=== PATIENT | female | born 1985 | race African-American/Black ===

== ENCOUNTER 2020-08-30 06:42 | Outpatient (NON) | payer BC, SELFPAY ==
[2020-09-01 17:04] LABS: SARS-CoV-2 RNA PCR Positive
== END 2020-08-30 06:43 ==
PROVIDERS: Visit Provider Internal Medicine Endocrinology, Diabetes & Metabolism
DX: U07.1 COVID-19 (principal); R50.9 Fever, unspecified
CPT/HCPCS: 87635; C9803; U0003

== ENCOUNTER 2021-07-18 18:47 | Emergency (ER) | payer BC, SELFPAY ==
--- NOTE | ~2021-07-18 | CT_ITS ---
EXAMINATION: CT abdomen pelvis w con DATE: 07/18/2021 23:30 INDICATION: Abdominal pain. Nausea and vomiting. TECHNIQUE: Computed tomography (CT) of the abdomen and pelvis was performed with 100 mL Omnipaque 350 intravenous contrast. Automated exposure control and iterative reconstruction technique were employe d. The dose-length product was 1441.01 mGy-cm. COMPARISON: None. FINDINGS: The visualized portions of the lung bases demonstrate mild atelectasis. No pleural effusion . The heart size is normal. No pericardial effusion. There is a portacaval shunt in right hepatic lob e. There are gallstones in the gallbladder, which is normal in size. The common duct is dilated to 8 mm. There are cysts in the spleen measuring up to 15 mm. The pancreas, adrenal glands, and kidneys ar e normal. There are no dilated loops of bowel. The appendix is normal. There are no pathologically en larged lymph nodes. There is no free intraperitoneal fluid. The ovaries are unremarkable. There is mi ld thoracic spondylosis. IMPRESSION: 1. Cholelithiasis. No evidence of acute cholecystitis. 2. Mildly dilated common duct. Reviewed, dictated and finalized at location A.
[2021-07-18 18:59] VITALS: BP 146/96; PULSE 92; RESP 14; TEMP 36.1; O2SAT 99
[2021-07-18 19:28] LABS: Basophils Percent Auto 0.2 % (0.2-1.2); Hematocrit 40.1 % (37.0-47.0); Immature Granulocyte Absolute 0.03 K/mm3 (0.00-0.031); Immature Granulocyte Percent A 0.3 % (0-0.5); Lymphocytes Percent Auto 12.5 % (18.3-44.2); Mean Corpuscular HGB Conc 32.4 g/dl (32-36); Mean Corpuscular Hemoglobin 27.9 pg (26-34); Mean Corpuscular Volume 86.1 fl (80-100); Mean Platelet Volume 9.7 fl (7.4-10.4); Monocytes Absolute Auto 0.4 K/mm3 (0.1-0.6); Monocytes Percent Auto 3.8 % (2.6-8.5); Neutrophils Percent Auto 83.2 % (45.5-73.1); Platelet Count Result 302 k/mm3 (150-375); Red Blood Count 4.66 M/mm3 (4.2-5.4); Red Cell Distribution Width 13.8 % (11.5-14.5); White Blood Count 9.6 K/mm3 (4.5-10.0)
[2021-07-18 19:37] LABS: Add Urine Microscopic? YES; Appearance Urine Clear (Clear); Bacteria Urine Trace /hpf; Bilirubin Urine Negative (Negative); Blood Urine Negative (Negative); Color Urine Yellow (Yellow); Glucose Urine UA Negative (Negative); Ketones Urine Trace mg/dL (Negative); Leukocyte Esterase Ur Negative LEU/UL (Negative); Mucus Urine Rare /lpf; Nitrate Urine Negative (Negative); Protein Urine 1+ mg/dL (Negative); RBC Urine 0-2 /hpf (0-2); Specific Grav Ur 1.024 (1.001-1.035); Squamous Epithelial Cell Urine Many /hpf (Few); Urobilinogen Urine Negative mg/dL (<2.0); WBC Urine 0-3 /hpf
[2021-07-18 19:41] LABS: Alanine Aminotransferase 15 U/L (4-35); Albumin Level 4.8 g/dL (3.5-5.1); Alkaline Phosphatase 68 U/L (38-126); Anion Gap 10 mmol/L (8-16); Aspartate Amino Transferase 27 U/L (14-36); Bilirubin,Total 0.8 mg/dL (0.2-1.3); Blood Urea Nitrogen 11 mg/dL (7-17); Calcium 9.3 mg/dL (8.4-10.2); Carbon Dioxide 24 mmol/L (22-30); Chloride 105 mmol/L (98-107); Estimated CRCL calculation 91 ml/min; Estimated Glomerular Filt Rate > 60; Glucose 172 mg/dL (65-110); Lipase 88 U/L (23-300); Potassium 3.9 mmol/L (3.4-5.0); Sodium 139 mmol/L (137-145)
[2021-07-18 22:23] VITALS: BP 124/92; PULSE 99; RESP 16; TEMP 36.7; O2SAT 100
[2021-07-18] MEDS: SODIUM CHLORIDE 0.9% IV 1,000 ML 999 ML IV CONT (23:04)
[2021-07-18] MEDS: ONDANSETRON INJ 4 MG/2 ML VIAL IV PUSH (23:05)
[2021-07-18] MEDS: MORPHINE SULFATE (*CRX) 4 MG/ML INJ IV PUSH (23:06)
[2021-07-18 23:09] VITALS: BP 140/75; PULSE 95; RESP 20; O2SAT 99
[2021-07-18 23:10] VITALS: BP 140/75; PULSE 93; RESP 18; O2SAT 100
--- NOTE | 2021-07-18 23:16 | ED.GENADULT ---
HPI - General Adult General Chief complaint: Abdominal Pain Stated complaint: ABD PAIN N/V Time Seen by Provider: 07/18/21 22:38 History of Present Illness HPI narrative: Patient is a 6-year-old female presents emerged from with chief complaint of abdominal pain. Patient reports she been having nausea some vomiting and reports pain throughout her abdomen that radiates to her back. Patient states the pain is more of a cramping pain reports not improved by anything nor is it worsened modestly. Patient reports that she is had no diarrhea reports has had a normal bowel movement and the patient states her period was in the last month. Related Data Allergies Allergy/AdvReac Type Severity Reaction Status Date / Time No Known Allergies Allergy Verified 07/18/21 23:38 Review of Systems Review of Systems: A 10 system review of systems was completed on the patient and is negative except for what is stated in the HPI. Nursing and ancillary documentation was reviewed. Exam Narrative: GENERAL: Well-appearing, well-nourished, and in no acute distress. HEAD: Normocephalic, atraumatic. EYES: PERRLA and EOMI. ENT: Nares clear, no rhinorrhea or epistaxis. Mucous membranes moist. NECK: Supple. CHEST: Clear to auscultation. No respiratory distress. HEART: Regular rate and rhythm. No murmur heard. Normal peripheral pulses. ABDOMEN: Soft, tender to palpation diffusely, nondistended, normal active bowel sounds. EXTREMITIES: Normal range of motion. No edema. SKIN: Warm, dry, no rash. NEURO: No focal deficits. Alert and oriented x3. PSYCH: Normal mood and affect. Course Vital Signs Vital signs: Vital Signs Temperature 36.1 C L 07/18/21 18:59 Pulse Rate 92 07/18/21 18:59 Respiratory Rate 14 07/18/21 18:59 Blood Pressure 146/96 H 07/18/21 18:59 Pulse Oximetry 99 07/18/21 18:59 Temperature 36.7 C 07/18/21 22:23 Pulse Rate 112 H 07/19/21 00:02 Respiratory Rate 26 H 07/19/21 00:02 Blood Pressure 182/82 H 07/19/21 00:02 Pulse Oximetry 99 07/19/21 00:02 Medical Decision Making Vital Signs Vital Signs: Vital Signs Temperature 36.1 C L 07/18/21 18:59 Pulse Rate 92 07/18/21 18:59 Respiratory Rate 14 07/18/21 18:59 Blood Pressure 146/96 H 07/18/21 18:59 Pulse Oximetry 99 07/18/21 18:59 Temperature 36.7 C 07/18/21 22:23 Pulse Rate 112 H 07/19/21 00:02 Respiratory Rate 26 H 07/19/21 00:02 Blood Pressure 182/82 H 07/19/21 00:02 Pulse Oximetry 99 07/19/21 00:02 Lab Data Result diagrams: 07/18/21 19:10 07/18/21 19:11 Labs: Lab Results 07/18/21 07/18/21 07/18/21 Range/Units 19:10 19:10 19:11 WBC 9.6 (4.5-10.0) K/mm3 RBC 4.66 (4.2-5.4) M/mm3 Hgb 13.0 (12.0-15.0) g/dL Hct 40.1 (37.0-47.0) % MCV 86.1 (80-100) fl MCH 27.9 (26-34) pg MCHC 32.4 (32-36) g/dl RDW 13.8 (11.5-14.5) % Plt Count 302 (150-375) k/mm3 MPV 9.7 (7.4-10.4) fl Immature Gran % (Auto) 0.3 (0-0.5) % Neut % (Auto) 83.2 H (45.5-73.1) % Lymph % (Auto) 12.5 L (18.3-44.2) % Hubbard % (Auto) 3.8 (2.6-8.5) % Eos % (Auto) 0.0 (0-4.4) % Baso % (Auto) 0.2 (0.2-1.2) % Lymph # (Auto) 1.20 (0.9-3.2) K/mm3 Hubbard # (Auto) 0.4 (0.1-0.6) K/mm3 Eos # (Auto) 0.0 (0-0.3) K/mm3 Baso # (Auto) 0.0 (0.0-0.1) K/mm3 Abs Immat Gran (auto) 0.03 (0.00-0.031) K/mm3 Absolute Neuts (auto) 8.0 H (1.3-6.7) K/mm3 Absolute Nucleated RBC 0.0 (0.0-0.012) K/mm3 Nucleated RBC % 0.0 (0.0-0.2) % Sodium 139 (137-145) mmol/L Potassium 3.9 (3.4-5.0) mmol/L Chloride 105 (98-107) mmol/L Carbon Dioxide 24 (22-30) mmol/L Anion Gap 10 (8-16) mmol/L BUN 11 (7-17) mg/dL Creatinine 0.80 (0.7-1.0) mg/dL Estim Creat Clear Calc 91 ml/min Estimated GFR > 60 (59 - ) Glucose 172 H (65-110) mg/dL Calcium 9.3 (8.4-10.2) mg/dL Total Bilirubin 0.8 (0.2-1.3)
[2021-07-19 00:02] VITALS: BP 182/82; PULSE 112; RESP 26; O2SAT 99
[2021-07-19] MEDS: MORPHINE SULFATE (*CRX) 4 MG/ML INJ IV PUSH (00:58)
[2021-07-19 01:11] VITALS: BP 130/73; PULSE 99; RESP 18; O2SAT 100
== END 2021-07-19 01:13 | disposition home or self-care (01) ==
PROVIDERS: Emergency Medicine; Emergency Provider Emergency Medicine; PCP Internal Medicine Endocrinology, Diabetes & Metabolism
DX: R10.84 Generalized abdominal pain (principal)
CPT/HCPCS: 36415; 74177; 80053; 81001; 81025; 83690; 85025; 96361; 96374; 96375; 96376; 99284; J2270; J2405; J7030; Q9967

== ENCOUNTER 2021-08-09 08:27 | Outpatient (CLI) | payer BC, SELFPAY ==
--- NOTE | ~2021-08-09 | NM_ITS ---
EXAMINATION: NM hepatobiliary wo pharm DATE: 08/09/2021 14:17 INDICATION: Generalized abdominal pain COMPARISON: CT dated 07/18/2021 TECHNIQUE: 5.1 mCi Tc-99m mebrofenin (Choletec) was administered intravenously. Scintigraphic images of the abdomen were obtained for one hour. At the 1 hour time point, the patient drank 8 oz Ensure, and imaging was continued for 60 minutes. Additional 4 hour delayed images were obtained. FINDINGS: There is normal clearance of radiotracer from the blood pool. There is homogeneous tracer u ptake by the liver. Activity through the common bile duct to the bowel with duodenal activity first seen at 25 minutes. The gallbladder is not visualized on the 1 hour delayed images. On the 4 hour del ayed images the region of the gallbladder is obscured by intense activity within the small bowel whic h projects along the region of the gallbladder fossa. IMPRESSION: 1. Normal hepatic clearance of activity with no cholestasis. 2. Nonvisualization of the gallbladder during the first one hour of imaging which could be seen with acute cholecystitis. Delayed four-hour imaging is nondiagnostic due to the presence of a large amount of activity in the bowel at the right upper quadrant which obscures the region of the gallbladder fo ssa. If there is clinical concern for acute cholecystitis would recommend right upper quadrant ultras ound or repeat CT for further evaluation.. Reviewed, dictated and finalized at location A. IMPRESSION: 1. Normal hepatic clearance of activity with no cholestasis. 2. Nonvisualization of the gallbladder during the first one hour of imaging whi ch could be seen with acute cholecystitis. Delayed four-hour imaging is nondiag nostic due to the presence of a large amount of activity in the bowel at the ri t upper quadrant which obscures the region of the gallbladder fossa. If there is clinical concern for acute cholecystitis would recommend right upper quadra nt ultrasound or repeat CT for further evaluation..
== END 2021-08-09 08:28 | disposition home or self-care (01) ==
LOC: ANHIMG 08:30
PROVIDERS: PCP Internal Medicine Endocrinology, Diabetes & Metabolism; Visit Provider Surgery
DX: R10.84 Generalized abdominal pain (principal); R11.2 Nausea with vomiting, unspecified
CPT/HCPCS: 78226; A9537